=== PATIENT | male | born 1995 | race Caucasian/White ===

== ENCOUNTER → 2023-12-12 | Outpatient (CLI) | payer OTHER | LOC: M RAD 16:42 | PROVIDERS: ATTEND Physician Assistant | DX: J32.1 Chronic frontal sinusitis (principal); J33.8 Other polyp of sinus ==

== ENCOUNTER → 2025-04-19 | Outpatient (CLI) | payer OTHER | LOC: M RAD 16:58 | DX: J32.1 Chronic frontal sinusitis (principal); Z86.018 Personal history of other benign neoplasm ==